=== PATIENT | female | born 1995 | race Caucasian/White ===

== ENCOUNTER 2021-10-17 16:10 | Emergency (ER) | payer OTHER ==
[2021-10-17 16:59] VITALS: BP 124/76; PULSE 76
[2021-10-17] MEDS ORDERED: Sodium Chloride 0.9% 10 ML Syringe FLUSH PRN (17:08)
== END 2021-10-17 20:05 | disposition home or self-care (01) ==
LOC: JD.ED 16:10
DX: O20.9 Hemorrhage in early pregnancy, unspecified (principal); Z3A.09 9 weeks gestation of pregnancy
CPT/HCPCS: 36415; 76817; 84702; 85025; 86900; 86901; 99284; J3490; 99283